=== PATIENT | male | born 2005 | race Caucasian/White ===

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

== ENCOUNTER 2025-04-10 14:35 | Outpatient (CLI) | payer BC | END 2025-04-10 14:36 | disposition home or self-care (01) | LOC: BICRAD 14:35 | PROVIDERS: ATTEND Internal Medicine | DX: M54.6 Pain in thoracic spine (principal); M54.50 Low back pain, unspecified; M54.2 Cervicalgia; M41.9 Scoliosis, unspecified | CPT/HCPCS: 72040; 72072; 72100 ==